=== PATIENT | female | born 1970 | race Caucasian/White ===

== ENCOUNTER 2017-06-29 07:19 | Emergency (ER) | payer OTHER ==
[2017-06-29 07:31] VITALS: TEMP 36.6; Ht 162.6 cm
[2017-06-29] MEDS ORDERED: BCPILLS PO (08:02)
[2017-06-29] MEDS ORDERED: SODIUM CHLORIDE 0.9% 1000ML 1,000 ML IV STA (08:18)
[2017-06-29] MEDS ORDERED: PROCHLORPERAZINE 5 MG/ML 2 ML VIAL IV STA (08:18)
[2017-06-29] MEDS ORDERED: MAGNESIUM SULFATE 1GM / D5W 1 GM BAG IV STA (08:18)
[2017-06-29] MEDS ORDERED: KETOROLAC TROMETHAMINE 30 MG/ML VIAL IV STA (08:18)
[2017-06-29] MEDS ORDERED: DiphenhydrAMINE HCL 50 MG/ML VIAL IV STA (08:18)
[2017-06-29 08:27] LABS: BASO ABS # 0.08 K/uL (0-0.2); EOS % 2.1 %; EOS ABS # 0.17 K/uL (0-0.5); HEMATOCRIT 41.9 % (37-47); HEMOGLOBIN 14.7 g/dL (12.0-16.0); IG# 0.01 K/uL (0.00-0.02); LYMPH ABS # 2.44 K/uL (1.2-3.4); MEAN CELL VOLUME 90.9 fL (80-100); MEAN CORPUSCULAR HEMOGLOBIN 31.9 pg (25-34); MEAN CORPUSCULAR HGB CONC 35.1 g/dl (32-36); MEAN PLATELET VOLUME 10.1 fL (7.4-10.4); MONO % 6.9 %; MONO ABS # 0.56 K/uL (0.11-0.59); NEUT % 59.9 %; NEUT ABS # 4.86 K/uL (1.4-6.5); PLATELET COUNT 302 K/uL (130-400); RED CELL DISTRIBUTION WIDTH CV 12.7 % (11.5-14.5); RED CELL DISTRIBUTION WIDTH SD 42.7 fL (36.4-46.3); WHITE BLOOD COUNT 8.12 K/uL (4.8-10.8)
[2017-06-29] MEDS ORDERED: OPTIRAY 320 IV PRN (08:30)
--- NOTE | 2017-06-29 08:32 | EMERGENCY ROOM VISIT NOTE ---
History Report prepared by Jairo: Dmitri Munoz Under the Supervision of: Dr. Antoni Concepcion M.D. First contact with patient: 07:52 Chief Complaint: HYPERTENSION Stated Complaint: HIGH BP,PULSE,LOSS OF CONSCIOUSNESS,DIZZINESS History of Present Illness The patient is a 47 year old female who presents to the Emergency Room with complaints of a severe and constant headache that began shortly prior to arrival. The patient states that her symptoms first began early this morning as she was walking into work. The patient notes becoming nauseous, dizzy, and subjectively feverish all at the same time. She could also feel her "heart racing" but she denies any shortness of breath. As she walked into work she started to feel as though she would "black out" and could feel her legs getting weak. Shortly after these symptoms began the patient developed a "splitting headache," which she describes as the "worst of her life." The patient has a history of migraines, but notes that this does not feel like her normal episodes. The patient does have a diagnosed pituitary tumor, which she has been told is benign. Source of History: patient Position: head Symptom Intensity: worst headache of live Quality: other ("Splitting" ) Timing: constant Associated Symptoms: + chest pain (HEART RACING), + weakness, No SOB Review of Systems See HPI for pertinent positives & negatives. A total of 10 systems reviewed and were otherwise negative. Past Medical & Surgical Hx of Pituitary Tumor. Social History Smoking Status: Former Smoker Housing Status: lives with family Occupation Status: employed Current/Historical Medications Scheduled Control Pills ( Control Pills), 1 TAB PO DAILY Allergies Coded Allergies: Coconut (Unverified Allergy, Severe, Anaphylaxis, 06/29/17) Physical Exam Vital Signs Date Time Temp Pulse Resp B/P (MAP) Pulse Ox O2 Delivery O2 Flow Rate FiO2 06/29/17 11:12 94 20 129/75 98 06/29/17 10:17 74 20 133/81 99 Room Air 06/29/17 09:27 71 20 143/91 98 Room Air 06/29/17 08:47 90 18 156/100 98 Room Air 06/29/17 07:55 97 06/29/17 07:31 36.6 62 20 158/94 97 Room Air Physical Exam GENERAL: Awake, alert, well-appearing, in no acute distress HENT: Normocephalic, atraumatic. Oropharynx unremarkable. EYES: Normal conjunctiva. Sclera non-icteric. NECK: Supple. No nuchal rigidity. FROM. No JVD. RESPIRATORY: Clear to auscultation. CARDIAC: Regular rate, normal rhythm. Extremities warm and well perfused. Pulses equal. ABDOMEN: Soft, non-distended. No tenderness to palpation. No rebound or guarding. No masses. RECTAL: Deferred. MUSCULOSKELETAL: Chest examination reveals no tenderness. The back is symmetrical on inspection without obvious abnormality. There is no CVA tenderness to palpation. No joint edema. LOWER EXTREMITIES: Calves are equal size bilaterally and non-tender. No edema. No discoloration. NEURO: Normal sensorium. No sensory or motor deficits noted. SKIN: No rash or jaundice noted. Medical Decision & Procedures ER Provider Diagnostic Interpretation: Radiology results as stated below per my review and radiologist interpretation: CHEST ONE VIEW PORTABLE CLINICAL HISTORY: severe hypertension COMPARISON STUDY: No previous studies for comparison. FINDINGS: The cardiac and mediastinal contours are normal. There is no evidence of focal pulmonary consolidation. There is no evidence of failure. No pleural effusions are visualized.[ IMPRESSION: No active disease in the chest. Electronically signed by: Pankaj Del Toro M.D. 06/29/2017 8:39 AM Dictated Date/Time: 06/29/2017 8:[address] ANGIOGRAPHY HEAD COMBO CT DOSE: 652.47 mGy.cm CLINICAL HISTORY: Severe headache, dizziness, loss of consciousness. Hypertension TECHNIQUE: Unenhanced images were obtained to the brain. CT angiography was then performed in a dynamic helical fashion during intravenous administration 1 through 20 cc Optiray 320. MIP imaging was obtained. A dose lowering technique was utilized adhering to the principles of ALARA. COMPARISON STUDY: None. FINDINGS: On the noncontrast study, no intra or extra-axial mass lesions are visualized. There is no CT evidence of acute cortical infarction. There is no midline shift. There is no evidence of acute hemorrhage. There is no hydrocephalus. There is no evidence of acute sinusitis. CT angiographic images reveal no evidence of aneurysm. There is no evidence of major intracranial branch occlusion. There is no evidence of dural venous sinus thrombosis. There is a prominent left anterior temporal cortical vein of uncertain clinical significance There are no pathologically enhancing lesions. IMPRESSION: 1. No acute intracranial findings 2. No evidence of aneurysm. No evidence of major intracranial branch occlusion 3. Prominent left anterior temporal cortical vein of uncertain clinical significance Electronically signed by: Pankaj Del Toro M.D. 06/29/2017 9:41 AM Dictated Date/Time: 06/29/2017 9:29 AM Laboratory Results 06/29/17 07:55 Red Blood Count 4.61, Mean Corpuscular Volume 90.9, Mean Corpuscular Hemoglobin 31.9, Mean Corpuscular Hemoglobin Concent 35.1, Mean Platelet Volume 10.1, Neutrophils (%) (Auto) 59.9, Lymphocytes (%) (Auto) 30.0, Monocytes (%) (Auto) 6.9, Eosinophils (%) (Auto) 2.1, Basophils (%) (Auto) 1.0, Neutrophils # (Auto) 4.86, Lymphocytes # (Auto) 2.44, Monocytes # (Auto) 0.56, Eosinophils # (Auto) 0.17, Basophils # (Auto) 0.08 06/29/17 07:55 Test 06/29/17 07:55 06/29/17 09:00 White Blood Count 8.12 K/uL (4.8-10.8) Red Blood Count 4.61 M/uL (4.2-5.4) Hemoglobin 14.7 g/dL (12.0-16.0) Hematocrit 41.9 % (37-47) Mean Corpuscular Volume 90.9 fL (80-100) Mean Corpuscular Hemoglobin 31.9 pg (25-34) Mean Corpuscular Hemoglobin Concent 35.1 g/dl (32-36) Platelet Count 302 K/uL (130-400) Mean Platelet Volume 10.1 fL (7.4-10.4) Neutrophils (%) (Auto) 59.9 % Lymphocytes (%) (Auto) 30.0 % Monocytes (%) (Auto) 6.9 % Eosinophils (%) (Auto) 2.1 % Basophils (%) (Auto) 1.0 % Neutrophils # (Auto) 4.86 K/uL (1.4-6.5) Lymphocytes # (Auto) 2.44 K/uL (1.2-3.4) Monocytes # (Auto) 0.56 K/uL (0.11-0.59) Eosinophils # (Auto) 0.17 K/uL (0-0.5) Basophils # (Auto) 0.08 K/uL (0-0.2) RDW Standard Deviation 42.7 fL (36.4-46.3) RDW Coefficient of Variation 12.7 % (11.5-14.5) Immature Granulocyte % (Auto) 0.1 % Immature Granulocyte # (Auto) 0.01 K/uL (0.00-0.02) Prothrombin Time 9.6 SECONDS (9.0-12.0) Prothromb Time International Ratio 0.9 (0.9-1.1) Activated Partial Thromboplast Time 25.0 SECONDS (21.0-31.0) Partial Thromboplastin Ratio 1.0 Anion Gap 9.0 mmol/L (3-11) Estimated GFR () 94.6 Estimated GFR (Non- 81.6 BUN/Creatinine Ratio 8.6 (10-20) Calcium Level 8.6 mg/dl (8.5-10.1) Total Bilirubin 0.3 mg/dl (0.2-1) Direct Bilirubin < 0.1 mg/dl (0-0.2) Aspartate Amino Transf (AST/SGOT) 20 U/L (15-37) Alanine Aminotransferase (ALT/SGPT) 20 U/L (12-78) Alkaline Phosphatase 71 U/L (45-117) Total Protein 7.0 gm/dl (6.4-8.2) Albumin 3.6 gm/dl (3.4-5.0) Lipase 166 U/L (73-393) Thyroid Stimulating Hormone (TSH) 1.110 uIu/ml (0.300-4.500) Urine Color YELLOW Urine Appearance CLEAR (CLEAR) Urine pH 8.0 (4.5-7.5) Urine Specific [place] 1.007 (1.000-1.030) Urine Protein NEG (NEG) Urine Glucose (UA) NEG (NEG) Urine Ketones NEG (NEG) Urine Occult Blood NEG (NEG) Urine Nitrite NEG (NEG) Urine Bilirubin NEG (NEG) Urine Urobilinogen NEG (NEG) Urine Leukocyte Esterase NEG (NEG) Labs reviewed by ED physician. Medications Administered Medications (Trade) Dose Ordered Sig/Angel Luis Route Start Time Stop Time Status Last Admin Dose Admin Sodium Chloride 1,000 ml @ 999 mls/hr Q1H1M STAT IV 06/29/17 08:18 06/29/17 09:18 DC 5/15/18 08:18 999 MLS/HR Ketorolac Tromethamine (Toradol Inj) 30 mg NOW STAT IV 06/29/17 08:18 06/29/17 08:22 DC 06/29/17 08:39 30 MG Prochlorperazine Edisylate (Compazine Inj) 10 mg NOW STAT IV 06/29/17 08:18 06/29/17 08:22 DC 06/29/17 08:39 10 MG Diphenhydramine HCl (Benadryl Inj) 50 mg NOW STAT IV 06/29/17 08:18 06/29/17 08:22 DC 06/29/17 08:39 50 MG Magnesium Sulfate (Magnesium Sulfate 1gm / D5W) 1 gm NOW STAT IV 06/29/17 08:18 06/29/17 08:23 DC 06/29/17 08:39 1 GM Valproate Sodium 500 mg/Dextrose 55 ml @ 55 mls/hr NOW STAT IV 06/29/17 09:55 06/29/17 10:54 DC 06/29/17 10:12 55 MLS/HR Dexamethasone Sodium Phosphate (Dexamethasone Inj Pf) 10 mg STK-MED ONCE .ROUTE 06/29/17 10:09 06/29/17 10:10 DC 06/29/17 10:13 10 MG ECG Per My Interpretation Indication: other (HTN) Rate (beats per minute): 89 Rhythm: normal sinus Findings: other (No BRYCE/STD) ED Course 0813: Past medical records reviewed. The patient was evaluated in room B7. A complete history and physical examination was performed. 1817: Ordered Magnesium Sulfate 1 gm IV, Benadryl 50 mg IV, Compazine 10 mg IV, Toradol 30 mg IV. 55: Ordered Dexamethasone 2.5 mL @ 1 mL/min IV, Valproate Sodium 55 mL @ 55 mL /hr IV. 1154: Upon reexamination the patient is resting in bed. I discussed results and treatment plan with the patient. She verbalizes agreement and understanding. The patient is ready for discharge. Medical Decision Differential diagnosis: Etiologies such as migraine headache, meningitis, sinusitis, CO exposure, ICH, SAH, infection, tumor, headache, sinus thrombosis, arterial dissection, as well as others were entertained. treatment. Return instructions were outlined and the patient was discharged in stable condition. This is a 47-year-old female who presents the emergency department after having what sounds like a near vasovagal episode in her office. Upon arrival to the emergency department the patient is complaining of a headache which she describes as different from her normal headaches. Based on this and using shared medical decision making with the patient decision was made to send the patient for a CTA to make sure that this was not an aneurysm. The CTA of the head is normal. In addition the patient was treated with a migraine cocktail. She was given Toradol, Compazine, Benadryl, magnesium. Repeat examination revealed improvement in the patient's symptoms. I will note that the patient has normal CBC normal renal profile normal liver profile normal lipase. I do feel she is well enough to be discharged home today and I stressed the need for follow-up with the patient's primary care physician. She was also given valproate as well as Decadron for the headache. Medication Reconcilliation Current Medication List: was personally reviewed by me Blood Pressure Screening Patient's blood pressure: Elevated blood pressure Impression Primary Impression: Vasovagal syncope Scribe Attestation The scribe's documentation has been prepared under my direction and personally reviewed by me in its entirety. I confirm that the note above accurately reflects all work, treatment, procedures, and medical decision making performed by me. Departure Information Dispostion Home / Self-Care Referrals No Doctor, Assigned (PCP) Forms HOME CARE DOCUMENTATION FORM, IMPORTANT VISIT INFORMATION, WORK / SCHOOL INSTRUCTIONS Patient Instructions My [facility] Additional Instructions Need follow up with PCP You have been examined and treated today on an emergency basis only. This is not a substitute for, or an effort to provide, complete comprehensive medical care. It is impossible to recognize and treat all injuries or illnesses in a single emergency department visit. It is therefore important that you follow up closely with your PCP. Call as soon as possible for an appointment. Thank you for your time and consideration. I look forward to speaking with you again soon. Please don't hesitate to call us if you have any questions.
[2017-06-29 08:35] LABS: INR 0.9 (0.9-1.1)
[2017-06-29 08:36] LABS: ALBUMIN 3.6 gm/dl (3.4-5.0); ALT/SGPT 20 U/L (12-78); AST/SGOT 20 U/L (15-37); BLOOD UREA NITROGEN 7 mg/dl (7-18); CALCIUM 8.6 mg/dl (8.5-10.1); CARBON DIOXIDE 23 mmol/L (21-32); CREATININE 0.85 mg/dl (0.60-1.20); GLUCOSE 124 mg/dl (70-99); LIPASE 166 U/L (73-393); POTASSIUM 3.9 mmol/L (3.5-5.1); SODIUM 138 mmol/L (136-145)
--- NOTE | 2017-06-29 08:40 | DIAGNOSTIC IMAGING REPORT ---
CHEST ONE VIEW PORTABLE CLINICAL HISTORY: severe hypertension COMPARISON STUDY: No previous studies for comparison. FINDINGS: The cardiac and mediastinal contours are normal. There is no evidence of focal pulmonary consolidation. There is no evidence of failure. No pleural effusions are visualized.[ IMPRESSION: No active disease in the chest. Electronically signed by: Pankaj Del Toro M.D. 06/29/2017 8:39 AM Dictated Date/Time: 06/29/2017 8:38 AM
[2017-06-29 08:46] LABS: ALKALINE PHOSPHATASE 71 U/L (45-117)
--- NOTE | 2017-06-29 09:43 | DIAGNOSTIC IMAGING REPORT ---
CT ANGIOGRAPHY HEAD COMBO CT DOSE: 652.47 mGy.cm CLINICAL HISTORY: Severe headache, dizziness, loss of consciousness. Hypertension TECHNIQUE: Unenhanced images were obtained to the brain. CT angiography was then performed in a dynamic helical fashion during intravenous administration 1 through 20 cc Optiray 320. MIP imaging was obtained. A dose lowering technique was utilized adhering to the principles of ALARA. COMPARISON STUDY: None. FINDINGS: On the noncontrast study, no intra or extra-axial mass lesions are visualized. There is no CT evidence of acute cortical infarction. There is no midline shift. There is no evidence of acute hemorrhage. There is no hydrocephalus. There is no evidence of acute sinusitis. CT angiographic images reveal no evidence of aneurysm. There is no evidence of major intracranial branch occlusion. There is no evidence of dural venous sinus thrombosis. There is a prominent left anterior temporal cortical vein of uncertain clinical significance There are no pathologically enhancing lesions. IMPRESSION: 1. No acute intracranial findings 2. No evidence of aneurysm. No evidence of major intracranial branch occlusion 3. Prominent left anterior temporal cortical vein of uncertain clinical significance Electronically signed by: Pankaj Del Toro M.D. 06/29/2017 9:41 AM Dictated Date/Time: 06/29/2017 9:29 AM
[2017-06-29] MEDS ORDERED: DEXAMETHASONE INJ 10 MG in SYRINGE 0 ML IV STA (09:55)
[2017-06-29] MEDS ORDERED: VALPROATE SOD IV 500 MG in DEXTROSE 5% 50ML 50 ML IV STA (09:55)
[2017-06-29] MEDS ORDERED: DEXAMETHASONE **PF** INJ 10 MG/ML VIAL ONE (10:09)
[2017-06-29 11:12] VITALS: BP 129/75; PULSE 94; O2SAT 98
== END 2017-06-29 11:14 | disposition home or self-care (01) ==
LOC: C.EDB 07:21
DX: R55 Syncope and collapse (principal); R51 Headache; Z86.018 Personal history of other benign neoplasm; Z87.891 Personal history of nicotine dependence; Z79.3 Long term (current) use of hormonal contraceptives; Z91.018 Allergy to other foods